=== PATIENT | female | born 1995 | race Caucasian/White ===

== ENCOUNTER 2018-12-09 12:11 | Emergency (ER) | payer BC ==
--- NOTE | 2018-12-09 12:51 | EDM.PDOC ---
ED HPI GENERAL MEDICAL PROBLEM - General Chief Complaint: Respiratory Problem Stated Complaint: BACK PAIN Time Seen by Provider: 12/09/18 12:16 Source of Information: Reports: Patient History Limitations: Reports: No Limitations - History of Present Illness INITIAL COMMENTS - FREE TEXT/NARRATIVE: History of present illness: []Patient is 25 weeks and states she has a small area of pain in her right chest that began last night when she's felt she was having an anxiety attack. This was associated with shortness of breath which she does not currently have any longer. She denies any abdominal pain or vaginal bleeding, fevers, chills, cough or chest wall trauma. She also denies any history of blood clots, recent travel or leg pain or swelling. Review of systems: As per history of present illness and below otherwise all systems reviewed and negative. Past medical history: As per history of present illness and as reviewed below otherwise noncontributory. Surgical history: As per history of present illness and as reviewed below otherwise noncontributory. Social history: No reported history of drug or alcohol abuse. Family history: As per history of present illness and as reviewed below otherwise noncontributory. Physical exam: General: Well developed, well nourished in NAD HEENT: Atraumatic, normocephalic, pupils reactive, negative for conjunctival pallor or scleral icterus, mucous membranes moist, throat clear, neck supple, nontender, trachea midline. Lungs: Clear to auscultation, breath sounds equal bilaterally, chest nontender. No chest wall tenderness No accessory muscle use Heart: S1S2, regular, negative for clicks, rubs, or JVD. Abdomen: 25 week abdomen, movements noted a patient during exam NABS, Soft, nondistended, nontender. Negative for masses or hepatosplenomegaly. Negative for costovertebral tenderness. Pelvis: Stable nontender. Genitourinary: Deferred. Rectal: Deferred. Extremities: Atraumatic, negative for cords or calf pain. Neurovascular unremarkable. Neuro: Awake, alert, oriented. Cranial nerves II through XII unremarkable. Cerebellum unremarkable. Motor and sensory unremarkable throughout. Exam nonfocal. Skin:warm and dry Diagnostics: vital signs are normal O2 sats 100% percent on room air. Therapeutics: None ED Course: I gave the patient the option for CT scan to rule out PE, patient prefers to wait to see if her symptoms worsen and will return immediately if they occur Impression: Chest pain Prescriptions: None Plan: Return to ER if pain worsens or shortness of breath recurs. Follow up with OB as needed Definitive disposition and diagnosis as appropriate pending reevaluation and review of above. 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: Musculoskeletal History: Reports: None Neurological History: Reports: None Psychiatric History: Reports: None Endocrine/Metabolic History: Reports: None Hematologic History: Reports: None Immunologic History: Reports: None Oncologic (Cancer) History: Reports: None Dermatologic History: Reports: None - Past Surgical History Head Surgeries/Procedures: Reports: None HEENT Surgical History: Reports: None Cardiovascular Surgical History: Reports: None Respiratory Surgical History: Reports: None GI Surgical History: Reports: None Female Surgical History: Reports: None Endocrine Surgical History: Reports: None Neurological Surgical History: Reports: None Musculoskeletal Surgical History: Reports: None Oncologic Surgical History: Reports: None Dermatological Surgical History: Reports: None Social & Family History - Family History Family Medical History: Noncontributory - Tobacco Use Smoking Status *Q: Never Smoker Second Hand Smoke Exposure: No - Caffeine Use Caffeine Use: Reports: Soda - Recreational Drug Use Recreational Drug Use: No ED ROS GENERAL - Review of Systems Review Of Systems: See Below ED EXAM, GENERAL - Physical Exam Exam: See Below Course - Vital Signs Last Recorded V/S: Last Vital Signs Temp 96.6 F 12/09/18 12:17 Pulse 77 12/09/18 12:17 Resp 18 12/09/18 12:17 BP 136/76 12/09/18 12:17 Pulse Ox 100 12/09/18 12:17 Departure - Departure Time of Disposition: 12:49 Disposition: Home, Self-Care 01 Condition: Good Clinical Impression: Encounter for medical screening examination - Discharge Information *PRESCRIPTION DRUG MONITORING PROGRAM REVIEWED*: No *COPY OF PRESCRIPTION DRUG MONITORING REPORT IN PATIENT VIKY: No Referrals: PCP,None [Primary Care Provider] - Additional Instructions: The following information is given to patients seen in the emergency department who are being discharged to home. This information is to outline your options for follow-up care. We provide all patients seen in our emergency department with a follow-up referral. The need for follow-up, as well as the timing and circumstances, are variable depending upon the specifics of your emergency department visit. If you don't have a primary care physician on staff, we will provide you with a referral. We always advise you to contact your personal physician following an emergency department visit to inform them of the circumstance of the visit and for follow-up with them and/or the need for any referrals to a consulting specialist. The emergency department will also refer you to a specialist when appropriate. This referral assures that you have the opportunity for follow-up care with a specialist. All of these measure are taken in an effort to provide you with optimal care, which includes your follow-up. Under all circumstances we always encourage you to contact your private physician who remains a resource for coordinating your care. When calling for follow-up care, please make the office aware that this follow-up is from your recent emergency room visit. If for any reason you are refused follow-up, please contact the [facility] Emergency Department at and asked to speak to the emergency department charge nurse. [facility] [address] [place] [id number]
== END 2018-12-09 13:25 | disposition home or self-care (01) ==
LOC: MW.ED 12:11
DX: O99.89 Other specified diseases and conditions complicating pregnancy, childbirth and the puerperium (principal); R07.9 Chest pain, unspecified; M54.6 Pain in thoracic spine; Z79.82 Long term (current) use of aspirin; Z3A.25 25 weeks gestation of pregnancy
CPT/HCPCS: 99282; 99283

== ENCOUNTER 2020-12-24 21:58 | Emergency (ER) | payer BC ==
--- NOTE | 2020-12-24 23:13 | EDM.PDOC ---
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 Patient again denies any abdominal pain vaginal bleeding nausea vomiting and this has her concerned because she normally has no symptoms when she is . Patient also states she is not sure if she felt the baby move. 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 History: 3 miscarriages Musculoskeletal History: Reports: None Neurological History: Reports: None Psychiatric History: Reports: Anxiety, Depression Endocrine/Metabolic History: Reports: None Hematologic History: Reports: None Immunologic History: Reports: None Oncologic (Cancer) History: Reports: None Dermatologic History: Reports: Eczema - Infectious Disease History Infectious Disease History: Reports: None - Past Surgical History Head Surgeries/Procedures: Reports: None HEENT Surgical History: Reports: None Cardiovascular Surgical History: Reports: None Respiratory Surgical History: Reports: None GI Surgical History: Reports: None Female Surgical History: Reports: None Endocrine Surgical History: Reports: None Neurological Surgical History: Reports: None Musculoskeletal Surgical History: Reports: None Oncologic Surgical History: Reports: None Dermatological Surgical History: Reports: None Social & Family History - Family History Family Medical History: Unobtainable - Tobacco Use Tobacco Use Status *Q: Never Tobacco User - Caffeine Use Caffeine Use: Reports: Soda - Recreational Drug Use Recreational Drug Use: No ED ROS GENERAL - Review of Systems Review Of Systems: See Below Constitutional: Reports: No Symptoms HEENT: Reports: No Symptoms Respiratory: Reports: No Symptoms Cardiovascular: Reports: No Symptoms Endocrine: Reports: No Symptoms GI/Abdominal: Reports: No Symptoms : Reports: No Symptoms Musculoskeletal: Reports: No Symptoms Skin: Reports: No Symptoms Neurological: Reports: No Symptoms Psychiatric: Reports: No Symptoms Hematologic/Lymphatic: Reports: No Symptoms Immunologic: Reports: No Symptoms ED EXAM - Physical Exam Exam: See Below Exam Limited By: No Limitations General Appearance: Alert, WD/WN, No Apparent Distress Respiratory/Chest: No Respiratory Distress, Lungs Clear, Normal Breath Sounds Cardiovascular: Normal Peripheral Pulses, Regular Rate, Rhythm GI/Abdominal Exam: Normal Bowel Sounds, Soft, Non-Tender Neurological: Alert, Oriented Course - Vital Signs Last Recorded V/S: Last Vital Signs Temp 98.3 F 12/24/20 22:45 Pulse 72 12/24/20 22:45 Resp 18 12/24/20 22:45 BP 116/79 12/24/20 22:45 Pulse Ox 97 12/24/20 22:45 - Orders/Labs/Meds Labs: Laboratory Tests 12/24/20 12/24/20 Range/Units 23:30 23:30 WBC 7.68 (4.0-11.0) K/uL RBC 4.84 (4.30-5.90) M/uL Hgb 14.4 (12.0-16.0) g/dL Hct 40.4 (36.0-46.0) % MCV 83.5 (80.0-98.0) fL MCH 29.8 (27.0-32.0) pg MCHC 35.6 (31.0-37.0) g/dL RDW Std Deviation 39.0 (28.0-62.0) fl RDW Coeff of Randa 13 (11.0-15.0) % Plt Count 173 (150-400) K/uL MPV 9.80 (7.40-12.00) fL Neut % (Auto) 58.1 (48.0-80.0) % Lymph % (Auto) 34.6 (16.0-40.0) % Graham % (Auto) 6.3 (0.0-15.0) % Eos % (Auto) 0.9 (0.0-7.0) % Baso % (Auto) 0.1 (0.0-1.5) % Neut # (Auto) 4.5 (1.4-5.7) K/uL Lymph # (Auto) 2.7 H (0.6-2.4) K/uL Graham # (Auto) 0.5 (0.0-0.8) K/uL Eos # (Auto) 0.1 (0.0-0.7) K/uL Baso # (Auto) 0.0 (0.0-0.1) K/uL Nucleated RBC % 0.0 /100WBC Nucleated RBCs # 0 K/uL Sodium 139 (136-145) mmol/L Potassium 4.2 (3.5-5.1) mmol/L Chloride 106 (98-107) mmol/L Carbon Dioxide 24.2 (21.0-32.0) mmol/L BUN 5 L (7.0-18.0) mg/dL Creatinine 0.6 (0.6-1.0) mg/dL Est Cr Clr Drug Dosing 143.33 mL/min Estimated GFR (MDRD) > 60.0 ml/min Glucose 93 (74-106) mg/dL Calcium 8.8 (8.5-10.1) mg/dL HCG, Quant 49425.0 mIU/mL - Re-Assessments/Exams Free Text/Narrative Re-Assessment/Exam: 12/25/20 00:23 We were able to confirm IUP with bedside sono we checked patient beta as well. Patient be discharged home. Departure - Departure Time of Disposition: 00:23 Disposition: Home, Self-Care 01 Condition: Good Clinical Impression: - Discharge Information *PRESCRIPTION DRUG MONITORING PROGRAM REVIEWED*: Not Applicable *COPY OF PRESCRIPTION DRUG MONITORING REPORT IN PATIENT VIKY: Not Applicable Instructions: Care Referrals: PCP,None [Primary Care Provider] - Forms: ED Department Discharge Additional Instructions: The following information is given to patients seen in the emergency department who are being discharged to home. This information is to outline your options for follow-up care. We provide all patients seen in our emergency department with a follow-up referral. The need for follow-up, as well as the timing and circumstances, are variable depending upon the specifics of your emergency department visit. If you don't have a primary care physician on staff, we will provide you with a referral. We always advise you to contact your personal physician following an emergency department visit to inform them of the circumstance of the visit and for follow-up with them and/or the need for any referrals to a consulting specialist. The emergency department will also refer you to a specialist when appropriate. This referral assures that you have the opportunity for follow-up care with a specialist. All of these measure are taken in an effort to provide you with optimal care, which includes your follow-up. Under all circumstances we always encourage you to contact your private physician who remains a resource for coordinating your care. When calling for follow-up care, please make the office aware that this follow-up is from your recent emergency room visit. If for any reason you are refused follow-up, please contact the [facility] Emergency Department at and asked to speak to the emergency department charge nurse. Please follow up with your primary care physician. If you do not have a primary care physician, see below: [facility] [address] [place] [phone] [facility] [address] [place] [id number] He was seen today because normally you have symptoms when you are but your symptoms are not present currently she will your to be evaluated. We did a bedside sonogram this saw the baby with movement as well as a heart ra te. We also checked the labs that were within normal range. We will send you home to follow-up with primary care physician. Sepsis Event Note (ED) - Evaluation Sepsis Screening Result: No Definite Risk - Focused Exam Vital Signs: Vital Signs Temp Pulse Resp BP Pulse Ox 12/24/20 22:45 98.3 F 72 18 116/79 97 - Assessment/Plan Plan: Patient is a 25-year-old female presents today for evaluation of her . Patient has no symptoms which makes her concerned she only has morning sickness and abdominal cramps. We did heart tones and had a heart rate of 175 I also did a bedside sono and so IUP with movement. Patient will be discharged home to follow-up with primary care physician.
[2020-12-25 00:16] LABS: BLOOD UREA NITROGEN,BUN 5 mg/dL (7.0-18.0); CARBON DIOXIDE,CO2 24.2 mmol/L (21.0-32.0); CHLORIDE,CL 106 mmol/L (98-107); GLUCOSE RANDOM 93 mg/dL (74-106); POTASSIUM,K 4.2 mmol/L (3.5-5.1); SODIUM,NA 139 mmol/L (136-145)
== END 2020-12-25 00:35 | disposition home or self-care (01) ==
LOC: MW.ED 21:58
DX: O99.891 Other specified diseases and conditions complicating pregnancy (principal); R10.9 Unspecified abdominal pain; Z3A.10 10 weeks gestation of pregnancy; Z79.82 Long term (current) use of aspirin
CPT/HCPCS: 36415; 80048; 84702; 85025; 99283

== ENCOUNTER 2021-05-04 19:56 | Observation (INO) | payer BC ==
[2021-05-04] MEDS ORDERED: Lactated Ringers 1,000 ML IV ONE (21:44)
[2021-05-04] MEDS ORDERED: Ondansetron 4 MG/2 ML SDV IVPUSH PRN (21:46)
--- NOTE | 2021-05-04 22:15 | US ---
INDICATION: Decreased movement and vomiting TECHNIQUE: Ultrasound OB pelvis transabdominal. Real-time anaya-scale imaging of the fetus was performed with static images saved for review. COMPARISON: None FINDINGS: Clinical Age: 30 weeks 3 days Sonographic imaging demonstrates a single living intrauterine gestation. Fetus demonstrates a regular cardiac rate of 153 beats per minute. Fetus has a cephalic orientation. The placenta lies posterior. The umbilical artery demonstrates adequate diastolic blood flow. Biometric measurements: Biparietal diameter: 8.1 centimeters corresponding to 32 weeks 5 days Head circumference: 29.3 centimeters corresponding to 32 weeks 3 days Abdominal circumference: Abdominal circumference 27.3 centimeters corresponding to 31 weeks 3 days Femur length: 6.2 centimeters corresponding to 32 weeks 2 days Estimated weight: 1856, 85th percentile. Amniotic fluid volume appears normal with an REZA of 18.6 cm. Single deepest vertical pocket: 5.4 cm. breathing movements, motion, and tone were all observed. IMPRESSION: Single viable intrauterine with a biophysical profile 01/09. Dictated by John Pappas MD @ 05/04/2021 10:13:44 PM (Electronically Signed)
== END 2021-05-04 23:30 | disposition home or self-care (01) ==
LOC: MW.OBCHECK 19:56 → MW.OB 19:56 → MW.OBCHECK 20:00
PROVIDERS: ADMIT Obstetrics & Gynecology; ATTEND Obstetrics & Gynecology
DX: O36.8130 Decreased fetal movements, third trimester, not applicable or unspecified (principal); O21.9 Vomiting of pregnancy, unspecified; Z3A.30 30 weeks gestation of pregnancy
CPT/HCPCS: 59025; 76819; 96374; G0378; J2405; J7120

== ENCOUNTER 2021-06-25 15:46 | Inpatient (IN) | payer BC ==
[2021-06-25 17:09] LABS: BLOOD UREA NITROGEN,BUN 2 mg/dL (7.0-18.0); CARBON DIOXIDE,CO2 22.5 mmol/L (21.0-32.0); CHLORIDE,CL 106 mmol/L (98-107); GLUCOSE RANDOM 99 mg/dL (74-106); POTASSIUM,K 3.4 mmol/L (3.5-5.1); SODIUM,NA 139 mmol/L (136-145)
[2021-06-25] MEDS ORDERED: Ondansetron 4 MG/2 ML SDV IVPUSH ONE (17:48)
[2021-06-25] MEDS ORDERED: Nalbuphine 10 MG/1 ML Vial IVPUSH PRN (18:45)
[2021-06-25] MEDS ORDERED: Terbutaline 1 MG/ML SDV SUBCUT PRN (18:45)
[2021-06-25] MEDS ORDERED: Lidocaine 1% 50 ML MDV INJECT PRN (18:45)
[2021-06-25] MEDS ORDERED: Misoprostol 25 MCG (1/4 of 100 MCG) Tab VAG PRN ×2 (18:45)
[2021-06-25] MEDS ORDERED: Carboprost Tromethamine 250 MCG/1 ML Amp IM PRN (18:45)
[2021-06-25] MEDS ORDERED: Tranexamic Acid 1,000 MG in Sodium Chloride 0.9% 100 ML IV PRN (18:45)
[2021-06-25] MEDS ORDERED: Oxytocin/0.9 % Sodium Chloride 30 UNIT/500 ML BAG IV SCH ×2 (18:45)
[2021-06-25] MEDS ORDERED: Ampicillin 2 GM in Sodium Chloride 0.9% 100 ML IV ONE (18:45)
[2021-06-25] MEDS ORDERED: Misoprostol 200 MCG Tab PO PRN (18:45)
[2021-06-25] MEDS ORDERED: Water For Irrigation,Sterile 1,000 ML Container IRR PRN (18:45)
[2021-06-25] MEDS ORDERED: Butorphanol 1 MG/ML SDV IVPUSH PRN (18:45)
[2021-06-25] MEDS ORDERED: Sodium Chloride 0.9% 10 ML Syringe FLUSH PRN (18:45)
[2021-06-25] MEDS ORDERED: Sodium Chloride 0.9% 20 ML SDV IV PRN (18:45)
[2021-06-25] MEDS ORDERED: Methylergonovine 0.2 MG/1 ML Amp IM PRN (18:45)
[2021-06-25] MEDS ORDERED: Sodium Chloride 0.9% 2.5 ML Syringe FLUSH PRN (18:45)
[2021-06-25] MEDS: Lactated Ringers 1,000 ML IV SCH (20:38)
[2021-06-25] MEDS ORDERED: diphenhydrAMINE 50 MG Cap PO PRN (21:02)
[2021-06-25] MEDS ORDERED: Acetaminophen 500 MG Tab PO PRN (22:04)
[2021-06-26] MEDS: Ampicillin 1 GM in Sodium Chloride 0.9% 50 ML IV SCH ×3 (00:37→09:20)
[2021-06-26] MEDS: Lactated Ringers 1,000 ML IV SCH ×3 (04:19→12:03)
[2021-06-26] MEDS ORDERED: Ropivacaine HCl/PF 100 ML ONE (10:12)
[2021-06-26] MEDS ORDERED: ePHEDrine 50 MG/ML SDV IVPUSH PRN ×2 (10:42)
[2021-06-26] MEDS ORDERED: Ropivacaine HCl/PF 200 MG in Premix Bag 1 BAG EPIDUR SCH (10:45)
[2021-06-26] MEDS ORDERED: Lanolin 100% Cream 7 GM Tube TOP PRN (14:46)
[2021-06-26] MEDS ORDERED: Docusate Sodium 100 MG Cap PO PRN (14:46)
[2021-06-26] MEDS ORDERED: Benzocaine/Menthol 20%-0.5% Spray 78 GM Cannister TOP PRN (14:46)
[2021-06-26] MEDS ORDERED: Bisacodyl 10 MG Supp RECTAL PRN (14:46)
[2021-06-26] MEDS ORDERED: Witch Hazel Medicated Pads 40/Jar TOP PRN (14:46)
[2021-06-26] MEDS ORDERED: Tranexamic Acid 1,000 MG in Sodium Chloride 0.9% 100 ML IV PRN (14:46)
[2021-06-26] MEDS ORDERED: Acetaminophen 500 MG Tab PO PRN (14:46)
[2021-06-26] MEDS ORDERED: Ibuprofen 400 MG Tab PO PRN (14:46)
[2021-06-26] MEDS: Ibuprofen 800 MG Tab PO PRN ×2 (16:32→23:21)
[2021-06-26] MEDS: Acetaminophen 500 MG Tab PO PRN (20:39)
[2021-06-27] MEDS: Acetaminophen 500 MG Tab PO PRN ×2 (03:44→12:38)
[2021-06-27] MEDS: Ibuprofen 800 MG Tab PO PRN (07:33)
== END 2021-06-27 17:00 | disposition home or self-care (01) | DRG 560 ==
LOC: MW.OBCHECK 15:46 → MW.OB 15:47 → MW.OBCHECK 18:45 → MW.OB 06-26 08:57 → OBSVTOIN 06-26 14:50 → MW.OB 06-26 17:13
PROVIDERS: ADMIT Obstetrics & Gynecology; ATTEND Obstetrics & Gynecology
PROC: 10E0XZZ Delivery of Products of Conception, External Approach (ICD-10-PCS; principal; 2021-06-26)
PROC: 10907ZC Drainage of Amniotic Fluid, Therapeutic from Products of Conception, Via Natural or Artificial Opening (ICD-10-PCS; 2021-06-26)
PROC: 3E0P7VZ Introduction of Hormone into Female Reproductive, Via Natural or Artificial Opening (ICD-10-PCS; 2021-06-26)
PROC: 3E033VJ Introduction of Other Hormone into Peripheral Vein, Percutaneous Approach (ICD-10-PCS; 2021-06-26)
PROC: 3E0R3BZ Introduction of Anesthetic Agent into Spinal Canal, Percutaneous Approach (ICD-10-PCS; 2021-06-26)
DX: O13.4 Gestational [pregnancy-induced] hypertension without significant proteinuria, complicating childbirth (principal); Z37.0 Single live birth; O99.12 Other diseases of the blood and blood-forming organs and certain disorders involving the immune mechanism complicating childbirth; D69.6 Thrombocytopenia, unspecified; Z3A.38 38 weeks gestation of pregnancy; O99.824 Streptococcus B carrier state complicating childbirth; Z20.822 Contact with and (suspected) exposure to COVID-19
CPT/HCPCS: 36415; 51702; 59025; 59409; 80053; 81001; 82803; 85025; 85027; 85049; 86592; 86850; 86900; 86901; A9270-GY; J0290; J2405; J2590; J2795; J7120; U0002